=== PATIENT | female | born 1960 | race African-American/Black ===

== ENCOUNTER 2018-05-05 05:47 | Inpatient (IN) | payer OTHER ==
[2018-05-02 14:54] LABS: BASOPHILS % 0.3 % (0.0-1.0); EOSINOPHILS # (AUTO) 0.2 (0.0-0.4); EOSINOPHILS % 2.6 % (0.0-6.0); HEMATOCRIT 36.5 % (34.2-44.1); HEMOGLOBIN 11.8 g/dL (12.0-16.0); LYMPHOCYTES # (AUTO) 2.4 (1.0-3.2); LYMPHOCYTES % 34.2 % (18.0-39.1); MEAN CORPUSCULAR HEMOGLOBIN 27.4 pg (28-32); MEAN CORPUSCULAR HGB CONC 32.3 g/dL (31-35); MEAN CORPUSCULAR VOLUME 84.7 fL (81-99); MONOCYTES # (AUTO) 0.6 (0.2-0.8); MONOCYTES % 7.9 % (4.4-11.3); NEUTROPHILS # (AUTO) 3.8 (2.1-6.9); NEUTROPHILS % 54.6 % (38.7-80.0); PLATELET COUNT 294 x10e3/uL (140-360); RED BLOOD COUNT 4.31 x10e6/uL (3.6-5.1); RED CELL DISTRIBUTION WIDTH 13.5 % (11.7-14.4)
[2018-05-02 15:10] LABS: ANION GAP 14.3 mmol/L (8-16); BLOOD UREA NITROGEN 18 mg/dL (7-26); BUN/CREATININE RATIO 25 (6-25); CALCIUM 9.5 mg/dL (8.4-10.2); CARBON DIOXIDE 23 mmol/L (22-29); CHLORIDE 100 mmol/L (98-107); CREATININE, SERUM 0.71 mg/dL (0.57-1.11); EST GLOMERULAR FILTRATION RATE > 60 ML/MIN (60-); GLUCOSE 85 mg/dL (74-118); POTASSIUM 3.3 mmol/L (3.5-5.1); SODIUM 134 mmol/L (136-145)
[~2018-05-05] VITALS: Ht 157.5 cm; Wt 91.6 kg
[~2018-05-05 05:47] MED LIST: ARTIFICIAL TEAR15 ML OP; ATORVASTATIN CA80 MG PO; FERROUS GLUCONATE PO; HYDROXYZINE HCL25 MG PO; LISINOPRIL2.5 MG PO; MULTIVITAMINS1 EAC7 PO; NOVOLOG MI100 UNIT/1 SQ; SYMBICORT 80-10.2 GM INH; TAMOXIFEN CITRA20 MG PO; TRULICITY INJ; VENLAFAXINE HCL75 MG PO; VITAMIN D250000 UNIT PO
--- OUTSIDE RECORDS SUMMARY | 2018-05-05 05:51 | XMS REPORT ---
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 Allergies, Adverse Reactions, Alerts This patient has no known allergies or adverse reactions. Medications This patient has no known medications. Encounters Start Date/Time End Date/Time Encounter Type Admission Type Attending Clinicians Care Facility Care Department Encounter ID 2017-02-08 10:54:00 2017-02-08 10:54:00 Outpatient Aidan Yusuf [id number]
--- OUTSIDE RECORDS SUMMARY | 2018-05-05 05:51 | XMS REPORT | Clinical Summary ---
Author Author [facility] Address Unknown Phone Unavailable Care Team Providers Care Funeral Driver Name Role Phone Elisha Medrano MD PCP Allergies Comments Active Allergy Reactions Severity Noted Date No Known Drug Allergies Other (See 06/25/2015 Comments) Medications End Date Status Medication Sig Dispensed Refills Start Date Active ATORVASTATIN CALCIUM Take 40 mg by 0 (ATORVASTATIN ORAL) mouth nightly. Active aspirin (ECOTRIN) 81 MG Take 81 mg by 0 enteric coated tablet mouth daily. Active venlafaxine (EFFEXOR) 75 Take 75 mg by 0 MG tablet mouth daily. Active insulin aspart Inject under 0 prot/insuln asp (NOVOLOG the skin. MIX 70-30 U-100 INSULN Note: 38 U in SUBQ) the morning and 46 U in the evening Active ondansetron ODT Take 4 mg by 0 (ZOFRAN-ODT) 4 MG mouth every 8 disintegrating tablet (eight) hours as needed for nausea or vomiting. Active TRULICITY 1.5 mg/0.5 mL Inject 0.5 mL 2 pen injector under the 8 skin once a week. Active lisinopril Take 1 tablet 0 (PRINIVIL,ZESTRIL) 2.5 mg by mouth tablet daily. Active tamoxifen (NOLVADEX) 20 Take 20 mg by 0 MG chemo tablet mouth daily. 02/12/2018 Discontinued ibuprofen (ADVIL,MOTRIN) Take 200 mg 0 200 MG tablet by mouth 2 (two) times a day. As needed for pain 12/02/2017 Discontinued HUMALOG MIX 75-25 KWIKPEN TAKE 30 UNITS 0 100 unit/mL (75-25) BEFORE 7 insulin pen BREAKFAST AND 15 UNITS BEFORE DINNER. 07/17/2017 Discontinued tamoxifen (NOLVADEX) 20 Take 1 tablet 90 tablet 0 MG chemo tablet (20 mg total) 7 by mouth daily for 90 days. 10/16/2017 tamoxifen (NOLVADEX) 20 TAKE 1 90 tablet 0 MG chemo tablet TABLET(20 MG) 8 BY MOUTH DAILY 09/02/2017 Discontinued tamoxifen (NOLVADEX) 20 TAKE 1 90 tablet 0 MG chemo tablet TABLET(20 MG) 8 BY MOUTH DAILY 09/02/2017 Discontinued tamoxifen (NOLVADEX) 20 TAKE 1 90 tablet 0 MG chemo tablet TABLET(20 MG) 8 BY MOUTH DAILY 09/02/2017 Discontinued tamoxifen (NOLVADEX) 20 TAKE 1 90 tablet 0 MG chemo tablet TABLET(20 MG) 8 BY MOUTH DAILY 01/07/2018 tamoxifen (NOLVADEX) 20 Take 1 tablet 90 tablet 2 MG chemo tablet (20 mg total) 8 by mouth daily for 90 days. 02/14/2018 Discontinued ondansetron ODT (ZOFRAN Take 1 tablet 10 tablet 0 ODT) 4 MG disintegrating (4 mg total) 8 tablet by mouth every 8 (eight) hours as needed for nausea or vomiting for up to 30 days. 02/14/2018 Discontinued ibuprofen (ADVIL,MOTRIN) Take 1 tablet 20 tablet 0 600 MG tablet (600 mg 8 total) by mouth every 6 (six) hours as needed for mild pain for up to 5 days. 02/15/2018 Discontinued tamoxifen citrate Take 1 tablet 0 (TAMOXIFEN ORAL) by mouth daily. 02/17/2018 Discontinued ibuprofen (ADVIL,MOTRIN) Take 600 mg 0 600 MG tablet by mouth every 6 (six) hours as needed for mild pain. Active Problems Problem Noted Date Diastolic heart failure, NYHA class 1 02/15/2018 Biliary colic 02/15/2018 ACS (acute coronary syndrome) 02/14/2018 Epigastric pain 02/14/2018 NAFLD (nonalcoholic fatty liver disease) 02/14/2018 Hypertriglyceridemia 10/30/2017 Obesity with body mass index 30 or greater 10/23/2017 Generalized anxiety disorder 10/23/2017 Panic disorder with agoraphobia 10/23/2017 Prophylactic use of SERMs 09/04/2016 Sleep apnea 06/25/2016 Estrogen receptor positive status (ER+) 06/25/2016 Depression 06/25/2016 Family history of malignant neoplasm of breast 06/25/2016 Sarcoidosis 12/07/2015 Breast cancer 11/07/2015 Cancer Staging: Clinical: Stage IA (T1c, N0, M0) - Signed by Oumar Wooten MD on 11/07/2015 Type 2 diabetes mellitus 06/25/2015 Overview: 09/2014: A1c 12.0, + microalbuminuria. glucosuriam, Cr 0.51 Resolved Problems Problem Noted Date Resolved Date Encounter of female for testing for genetic disease carrier status for 06/25/2016 09/02/2017 procreative management Encounters Care Team Description Date Type Specialty Myra Alegria III, MD Sadoun, Elise Yasmeen, MD ACS (acute coronary syndrome) (HCC) (Primary Dx) 02/14/2018 Emergency General Internal Medicine - 02/17/2018 Judy Pandya MD Non-intractable vomiting with nausea, unspecified vomiting type (Primary Dx); Chest pain, unspecified type; Nonintractable headache, unspecified chronicity pattern, unspecified headache type 02/12/2018 Emergency Emergency Medicine Oumar Wooten MD Malignant neoplasm of upper-outer quadrant of right breast in female, estrogen receptor positive (Primary Dx) 12/02/2017 Office Visit Oncology David Lawrence MD 11/27/2017 Hospital Radiation Oncology Encounter Adam Mitchell MD Acute pain of left ear (Primary Dx); Impacted cerumen of left ear 11/05/2017 Emergency Emergency Medicine Hanna Garcia RN 10/09/2017 Orders Only Oncology Lisa Wright MD Malignant neoplasm of upper-outer quadrant of right breast in female, estrogen receptor positive (Primary Dx); Type 2 diabetes mellitus without complication, with long-term current use of insulin; Prophylactic use of SERMs; Family history of malignant neoplasm of breast; Sarcoidosis 09/02/2017 Office Visit General Surgery Oumar Wooten MD 08/20/2017 Refill Oncology Oumar Wooten MD 07/20/2017 Refill Oncology Oumar Wooten MD 07/17/2017 Refill Oncology David Lawrence MD 06/06/2017 Hospital Radiation Oncology - Encounter 06/07/2017 after 05/04/2017 Immunizations Name Dates Previously Given Next Due FLUCELVAX QUAD PF (0.5mL 02/17/2018 syringe) Pneumococcal Conjugate 02/17/2018 13-Valent Pneumococcal 02/17/2018 (Deferred: ) Polysaccharide Family History Medical History Relation Name Comments Breast cancer Brother Diabetes Brother Cancer Cousin Malignant tumor of breast Cancer Cousin Malignant tumor of breast Other Daughter History of osteosarcoma Breast cancer Maternal Aunt Cancer Maternal Aunt Malignant tumor of breast Diabetes Mother Cancer Sister History of malignant neoplasm-Breast Relation Name Status Comments Brother Cousin Cousin Daughter Maternal Aunt (Age 70) Mother Sister Alive Social History Date Tobacco Use Types Packs/Day Years Used Never Smoker Smokeless Tobacco: Never Used Alcohol Use Drinks/Week oz/Week Comments Yes Occasional Sex Assigned at Date Recorded Not on file Industry Job Start Date Occupation Not on file Not on file Not on file Travel End Travel History Travel Start No recent travel history available. Last Filed Vital Signs Time Taken Vital Sign Reading 02/17/2018 10:27 AM CDT Blood Pressure 116/56 02/17/2018 10:27 AM CDT Pulse 90 02/17/2018 10:27 AM CDT Temperature 36.9 C (98.4 F) 02/17/2018 10:27 AM CDT Respiratory Rate 18 02/17/2018 10:27 AM CDT Oxygen Saturation 97% - Inhaled Oxygen - Concentration 02/16/2018 3:36 AM CDT Weight 90.4 kg (199 lb 6.4 oz) 02/14/2018 3:55 PM CDT Height 157.5 cm (5' 2") 02/16/2018 3:36 AM CDT Body Mass Index 36.47 Plan of Treatment Care Team Description [place] [address] [facility] [address] [place] [address] 05/07/2018 [place] [address] [facility] [address] [place] [address] 05/07/2018 Hospital [place]iology [place] [address] [facility] [address] [place] [address] 06/04/2018 [place] [address] [facility] [address] [place], [place] [id number] 06/04/2018 Appointment Radiation Oncology Health Maintenance Due Date Last Done Comments DIABETIC RETINAL EYE EXAM 1962 DIABETIC FOOT EXAM 01/23/1972 CERVICAL CANCER SCREENING 1983 COLON CANCER SCREENING 01/23/2012 SHINGLES VACCINES (1 of 01/23/2012 2) BREAST CANCER SCREENING 05/03/2019 05/03/2017, 05/03/2017, 05/01/2016, Additional history exists INFLUENZA VACCINE Completed 02/17/2018 Procedures Comments Procedure Name Priority Date/Time Associated Diagnosis POC GLUCOSE Routine 02/17/2018 10:46 AM CDT NM HEPATOBILIARY W PHARM Routine 02/17/2018 10:43 AM CDT POC GLUCOSE Routine 02/16/2018 9:00 PM CDT POC GLUCOSE Routine 02/16/2018 5:24 PM CDT POC GLUCOSE Routine 02/16/2018 11:44 AM CDT POC GLUCOSE Routine 02/16/2018 7:50 AM CDT MRI CHOLANGIOGRAM WO Routine 02/15/2018 CONTRAST 9:53 PM CDT POC GLUCOSE Routine 02/15/2018 9:22 PM CDT POC GLUCOSE Routine 02/15/2018 5:24 PM CDT NM MYOCARDIAL PERFUSION Routine 02/15/2018 Precordial chest pain STRESS ONLY 1:35 PM CDT CV STRESS TEST NUCLEAR Routine 02/15/2018 CARDIO 1:35 PM CDT POC GLUCOSE Routine 02/15/2018 11:34 AM CDT US ABDOMEN COMPLETE Routine 02/15/2018 11:27 AM CDT ECHOCARDIOGRAM 2D Routine 02/15/2018 COMPLETE W MMODE SPECTRAL 10:40 AM CDT COLOR DOPPLER ([id number]) POC GLUCOSE Routine 02/15/2018 7:54 AM CDT PROTHROMBIN TIME WITH INR Routine 02/15/2018 4:50 AM CDT TROPONIN Timed 02/15/2018 4:50 AM CDT LIPID PANEL Timed 02/15/2018 12:57 AM CDT TROPONIN Timed 02/15/2018 12:57 AM CDT LACTIC ACID LEVEL, SEPSIS Timed 02/15/2018 - NOW AND REPEAT 2X EVERY 12:57 AM CDT 3 HOURS HEMOGLOBIN A1C Routine 02/15/2018 12:51 AM CDT ECG 12-LEAD Routine 02/15/2018 12:33 AM CDT ECG 12-LEAD Routine 02/14/2018 10:45 PM CDT POC GLUCOSE Routine 02/14/2018 8:54 PM CDT ECG 12-LEAD Routine 02/14/2018 8:24 PM CDT XR CHEST 2 VW STAT 02/14/2018 6:05 PM CDT ESTIMATED GFR STAT 02/14/2018 5:35 PM CDT D-DIMER STAT 02/14/2018 5:35 PM CDT B NATRIURETIC PEPTIDE STAT 02/14/2018 5:35 PM CDT TROPONIN Timed 02/14/2018 5:35 PM CDT TROPONIN STAT 02/14/2018 5:35 PM CDT CREATINE KINASE, TOTAL STAT 02/14/2018 (CPK) 5:35 PM CDT LIPASE LEVEL STAT 02/14/2018 5:35 PM CDT LACTIC ACID LEVEL, SEPSIS Timed 02/14/2018 - NOW AND REPEAT 2X EVERY 5:35 PM CDT 3 HOURS LACTIC ACID LEVEL, SEPSIS STAT 02/14/2018 - NOW AND REPEAT 2X EVERY 5:35 PM CDT 3 HOURS COMPREHENSIVE METABOLIC STAT 02/14/2018 PANEL 5:35 PM CDT HC COMPLETE BLD COUNT STAT 02/14/2018 W/AUTO DIFF 5:35 PM CDT ECG ED PRELIMINARY Routine 02/14/2018 INTERPRETATION 5:10 PM CDT URINALYSIS SCREEN AND STAT 02/14/2018 MICROSCOPY, WITH REFLEX 5:00 PM CDT TO CULTURE URINE CULTURE STAT 02/14/2018 5:00 PM CDT ECG 12-LEAD STAT 02/14/2018 4:02 PM CDT URINALYSIS SCREEN AND STAT 02/12/2018 MICROSCOPY, WITH REFLEX 8:45 PM CDT TO CULTURE URINE CULTURE STAT 02/12/2018 8:45 PM CDT XR CHEST 1 VW PORTABLE STAT 02/12/2018 7:39 PM CDT ESTIMATED GFR STAT 02/12/2018 6:45 PM CDT PHOSPHORUS LEVEL STAT 02/12/2018 6:45 PM CDT MAGNESIUM LEVEL STAT 02/12/2018 6:45 PM CDT LACTIC ACID LEVEL, SEPSIS STAT 02/12/2018 - NOW AND REPEAT 2X EVERY 6:45 PM CDT 3 HOURS BETA HYDROXYBUTYRATE STAT 02/12/2018 6:45 PM CDT TROPONIN STAT 02/12/2018 6:45 PM CDT CREATINE KINASE, TOTAL STAT 02/12/2018 (CPK) 6:45 PM CDT LIPASE LEVEL STAT 02/12/2018 6:45 PM CDT COMPREHENSIVE METABOLIC STAT 02/12/2018 PANEL 6:45 PM CDT HC COMPLETE BLD COUNT STAT 02/12/2018 W/AUTO DIFF 6:45 PM CDT ECG ED PRELIMINARY Routine 02/12/2018 INTERPRETATION 6:39 PM CDT ECG 12-LEAD STAT 02/12/2018 5:49 PM CDT after 05/04/2017 Results * POC glucose (02/17/2018 10:46 AM CDT) Only the most recent of 10 results within the time period is included. POC glucose 172 (H) 65 - 99 mg/dL [facility] DEPARTMENT OF Comment: PATHOLOGY AND RN Notified GENOMIC MEDICINE Meter ID: [id number] [employer] Spray Supervisor: Jason Arrieta Performing Organization Address City/State/[place] [address] PATHOLOGY AND GENOMIC MEDICINE * NM Hepatobiliary W Pharm (HIDA Scan w Pharm) (02/17/2018 10:43 AM CDT) Narrative Performed At [facility] Procedure:NM HEPATOBILIARY W PHARM (HIDA SCAN W PHARM) Clinical History:RUQ painno feverno elev WBCUS shows gallstones only Technique: The patient was injected with 4 mCi of [id number] intravenously, followed by dynamic imaging of the abdomen in the anterior projection for 1 hour. Because of a nation-wide shortage of CCK, the patient was given a liquid fatty meal consisting of 8 oz of Boost Plus, followed by dynamic imaging of the abdomen for 60 min; these images were used to calculate the gallbladder ejection fraction. Please note that this liquid fatty meal has been shown to be a reasonable and, in fact, more physiological alternative to CCK. Findings: There is normal uptake of tracer by the liver with normal excretion into the biliary tree. Tracer proceeds normally into the gallbladder and small bowel. Gallbladder ejection fraction=91% (normal is >30%) Impression: 1. No evidence of acute cholecystitis or common bile duct obstruction. 2. Normal gallbladder ejection fraction. [facility]-[id number] Procedure Note Interface, Radiology Results Incoming - 02/17/2018 10:47 AM CDT Procedure: NM HEPATOBILIARY W PHARM (HIDA SCAN W PHARM) Clinical History: RUQ pain no fever no elev WBC US shows gallstones only Technique: The patient was injected with 4 mCi of [id number] intravenously, followed by dynamic imaging of the abdomen in the anterior projection for 1 hour. Because of a nation-wide shortage of CCK, the patient was given a liquid fatty meal consisting of 8 oz of Boost Plus, followed by dynamic imaging of the abdomen for 60 min; these images were used to calculate the gallbladder ejection fraction. Please note that this liquid fatty meal has been shown to be a reasonable and, in fact, more physiological alternative to CCK. Findings: There is normal uptake of tracer by the liver with normal excretion into the biliary tree. Tracer proceeds normally into the gallbladder and small bowel. Gallbladder ejection fraction=91% (normal is >30%) Impression: 1. No evidence of acute cholecystitis or common bile duct obstruction. 2. Normal gallbladder ejection fraction. [facility]-[id number] Performing Organization Address City/State/Zipcode Phone Number [facility] [address] [place] [address] * MRI Cholangiogram wo contrast (02/15/2018 9:53 PM CDT) Narrative Performed At [facility] Examination:MRI CHOLANGIOGRAM WO CONTRAST Clinical History: RUQ paincholecystitis suspected Comparison: None. Findings: MRI of the abdomen was performed without gadolinium contrast. MRCP was performed with computer reformatted images and 3-D MIPS images obtained on the acquisition scanner under supervision. There are no gallstones in the gallbladder. No gallbladder wall thickening is seen. The common bile duct is not dilated. It measures up to 5 mm. No filling defect is seen in the common bile duct to suggest a stone. The liver, spleen, pancreas, and adrenal glands are unremarkable. The kidneys are within normal limits without hydronephrosis. Visualized bowel loops are unremarkable. There is a right breast cystic structure noted measuring 3.0 x 2.6 cm not well-characterized on this study especially without intravenous contrast. Correlation with ultrasound and mammogram is recommended on a nonemergent basis. No free fluid is seen. IMPRESSION: 1. No evidence of gallstone. No gallbladder wall thickening. 2. No common bile duct dilatation nor common bile duct stone identified. [facility]-[id number] Procedure Note Hm Interface, Radiology Results Incoming - 02/15/2018 10:12 PM CDT Examination: MRI CHOLANGIOGRAM WO CONTRAST Clinical History: RUQ pain cholecystitis suspected Comparison: None. Findings: MRI of the abdomen was performed without gadolinium contrast. MRCP was performed with computer reformatted images and 3-D MIPS images obtained on the acquisition scanner under supervision. There are no gallstones in the gallbladder. No gallbladder wall thickening is seen. The common bile duct is not dilated. It measures up to 5 mm. No filling defect is seen in the common bile duct to suggest a stone. The liver, spleen, pancreas, and adrenal glands are unremarkable. The kidneys are within normal limits without hydronephrosis. Visualized bowel loops are unremarkable. There is a right breast cystic structure noted measuring 3.0 x 2.6 cm not well- characterized on this study especially without intravenous contrast. Correlation with ultrasound and mammogram is recommended on a nonemergent basis. No free fluid is seen. IMPRESSION: 1. No evidence of gallstone. No gallbladder wall thickening. 2. No common bile duct dilatation nor common bile duct stone identified. [facility]-[id number] Performing Organization Address [facility] HospitalSecuresight Technologiesok Phone Number [facility] [address] [place] [address] * Cv ecg exercise stress (nuclear or echo) (02/15/2018 1:35 PM CDT) Resting HR 80 [facility] MUSE Peak MET Achieved 1.0 [facility] MUSE Protocol Name Regadenoson [facility] MUSE Time in Exercise Phase 00:01:00 H MUSE Max Systolic BP 157 [facility] MUSE Max Diastolic BP 64 [facility] MUSE Max Heart Rate 112 [facility] Max Predicted Heart Rate 164 [facility] MUSE Target HR Formula (220 - Age)*85% [facility] MUSE Test Indication CP [facility] MUSE Stress Test Impression Waveform interpreted in report [facility] MUSE associated with image study. No interpretation is provided as part of this Stress ECG report.--Electronically Signed By Jennifer Knowles MD ([id number]), society editor Sana Zelaya ([id number]) on 02/15/2018 3:03:23 PM Target HR 164.00 bpm [facility] MUSE Performing Organization Address City/[facility]/Zipcode Phone Number [facility] MUSE [address] [place] [address] * Myocardial perfusion (02/15/2018 1:35 PM CDT) Target HR 164.00 bpm [facility] Resting HR 80 BPM [facility] Resting BP 116/58 mmHg [facility] Post peak HR 112 bpm [facility] Percent HR 68.29 % [facility] Post peak BP 157/64 mmHg [facility] Exercise duration (min) 1 min [facility] Narrative Performed At [facility] 1. Normal myocardial perfusion study without any ischemia or scar. 2. Normal hemodynamic and electrocardiographic regadenoson stress test. 3. Gated perfusion imaging shows normal global left ventricular systolic functionwith an ejection fraction of >70%. Performing Organization Address [facility] Hospitalcook Phone Number [facility] [address] [place] [address] * US Abdomen Complete (02/15/2018 11:27 AM CDT) Narrative Performed At EXAM: US ABDOMEN COMPLETE [facility] CLINICAL DATA:Nauseavomiting, epigastric paindiabetes COMPARISON: 08/17/2016 IMPRESSION: 1. Liver: Heterogeneous echogenicity of the liver which can be seen with fatty infiltration or liver parenchymal disease. No focal masses. 2. Gallbladder: 1.5 cm ovoid and slightly irregular echogenic material within the gallbladder likely represents sludge. No shadowing. Short-term follow-up ultrasound recommended for reassessment. The gallbladder wall is not thickened. 3. CBD: The common bile duct is within normal limits. 4. Portal Vein: Patent 5. Pancreas: The visualized portion of the pancreas is unremarkable. 6. Spleen: The spleen is not enlarged. 7. Kidneys: No suspicious mass, hydronephrosis or renal calculi in the right or left kidneys. 8. Aorta: The visualized portion of the abdominal aorta is non aneurysmal. 9. IVC: The visualized portion of the inferior vena cava is unremarkable. 10. Ascites: No ascites. 11. Other findings: None [id number] Procedure Note Interface, Radiology Results Incoming - 02/15/2018 11:37 AM CDT EXAM: US ABDOMEN COMPLETE CLINICAL DATA: Nausea vomiting, epigastric pain diabetes COMPARISON: 08/17/2016 IMPRESSION: 1. Liver: Heterogeneous echogenicity of the liver which can be seen with fatty infiltration or liver parenchymal disease. No focal masses. 2. Gallbladder: 1.5 cm ovoid and slightly irregular echogenic material within the gallbladder likely represents sludge. No shadowing. Short-term follow-up ultrasound recommended for reassessment. The gallbladder wall is not thickened. 3. CBD: The common bile duct is within normal limits. 4. Portal Vein: Patent 5. Pancreas: The visualized portion of the pancreas is unremarkable. 6. Spleen: The spleen is not enlarged. 7. Kidneys: No suspicious mass, hydronephrosis or renal calculi in the right or left kidneys. 8. Aorta: The visualized portion of the abdominal aorta is non aneurysmal. 9. IVC: The visualized portion of the inferior vena cava is unremarkable. 10. Ascites: No ascites. 11. Other findings: None [id number] Performing Organization Address City/State/Zipcode Phone Number [facility] [address] [place] [address] * Echocardiogram complete w contrast and 3D if needed (02/15/2018 10:40 AM CDT) AoV Area, Vmax 3.40 cm2 [facility] AoV Area, VTI 3.16 cm2 [facility] AoV Mean PG 2.00 mmHg [facility] AoV Peak PG 4.08 mmHg [facility] AoV Vmax 1.01 m/s [facility] AoV VTI 0.22 m [facility] IVS,d 1.13 cm [facility] IVS/LVPW,2D 0.98 [facility] Left Atrium Dimension 3.40 cm [facility] Anterior LV,d 3.95 cm [facility] LV EF,2D 62.44 % [facility] LV,s 2.85 cm [facility] LVOT area 3.46 cm2 [facility] LVOT Diam,S 2.10 cm [facility] LVOT Vmax 0.99 m/s [facility] LVOT VTI 0.20 m [facility] LVPWD,d 1.15 cm [facility] PV Pk Grad 2.53 mmHg [facility] PV VMAX 0.80 m/s [facility] RVOT Vmax 0.72 m/s [facility] RVSP (TR) 21.70 mmHg [facility] TR Vpeak 1.71 mm/s [facility] MV E A ratio 0.76 [facility] RA pressure 10.00 mmHg [facility] TR pk grad 11.70 mmHg [facility] MR Vmax 1.16 m/s [facility] MR peak grad 5.38 mmHg [facility] E wave decelartion time 201.00 msec [facility] MV Peak A Tyler 0.79 m/s [facility] MV valve area p 1/2 3.77 cm2 [facility] method MV Peak E Ytler 0.60 m/s [facility] MV stenosis pressure 1/2 58.29 ms [facility] time AV LVOT peak gradient 3.92 mmHg [facility] RVSP 21.70 mmHg [facility] Ao Root,d,2D 2.60 cm [facility] LV SYS VOL 30.87 ml [facility] LV IBRAHIM VOL 67.94 ml [facility] LV SV Teich 2D 37.07 ml [facility] LV Vol s Teich PSAX 30.87 ml [facility] RVOT pk grad 2.06 mmHg [facility] AoV Cusp sep 2.10 [facility] Aortic Root 3.20 cm [facility] AoV Vmn 0.74 [facility] LV FS Teich 2D 27.85 [facility] MV AE ratio 1.32 [facility] LA Ao Ratio Mmode 1.16 [facility] LV FS Cube 2D 27.85 [facility] LVOT Vmn 0.65 [facility] LVPW d Mmode 1.13 [facility] Aov area Vmn 3.07 cm2 [facility] LVOT mean grad 2.00 mmHg [facility] MAX Pred HR 163.93 [facility] 85 of MPHR 139.34 [facility] Ao d LA s ratio 0.76 [facility] Calc MPHR 163.93 bpm [facility] LV SV Cube 2D 38.48 ml [facility] LV vol d cube 2D 61.63 ml [facility] LV vol s cube 2D 23.15 ml [facility] MV Decel slope 2.97 m/s2 [facility] Pred Exer Dur R1 8.33 [facility] Pred METS R1 7.41 [facility] Velocity Ratio (V1/V2) 0.98 m/s [facility] EF 54.56 % [facility] E/A ratio 0.76 [facility] Narrative Performed At [facility] Left ventricle is normal in size and systolic function. Left ventricular ejection fraction is 60 - 65%. Relaxation impairment of left ventricular filling, consistent with stage 1 diastolic dysfunction. Both atria are normal in size. Right ventricle is normal in size and systolic function. Mitral, tricuspid and aortic valve appear normal in structure; pulmonic valve is not well visualized. Estimated right ventricular systolic pressure is normal at 22 mm Hg., assuming right atrial pressure of 10 mm Hg. No mass or thrombus identified in the cardiac chambers in the available views. No pericardial effusion. Interatrial septum appears intact. Performing Organization Address City/State/Zipcode Phone Number [facility] [address] [place] [address] * Troponin (02/15/2018 4:50 AM CDT) Only the most recent of 5 results within the time period is included. Troponin <0.30 0.00 - 0.30 ng/mL [facility] DEPARTMENT OF Comment: PATHOLOGY AND 0.11 - 1.49 GENOMIC MEDICINE ng/mlMay indicate increased risk of acute coronary syndrome. >=1.5 ng/ml Consistent with acute myocardial infarction. The diagnostic value of a single normal or non-diagnostic result is questionable.Serial samples at 2-6 hour intervals are required to rule out acute myocardial injury. Specimen Plasma specimen Performing Organization Address [facility] Phone Number [address] [address] PATHOLOGY AND ideeli MEDICINE * Prothrombin time with INR (02/15/2018 4:50 AM CDT) Prothrombin time 14.3 12.0 - 15.0 sec [facility] DEPARTMENT OF PATHOLOGY AND GENOMIC MEDICINE INR 1.1 [facility] DEPARTMENT OF Comment: PATHOLOGY AND The International Normalized GENOMIC MEDICINE Ratio (INR) is a therapeutic monitoring tool for patients who are stable on oral anticoagulant therapy. An INR of 2.0-3.0 is suggested for deep vein thrombosis/pulmonary embolism. Specimen Blood Performing Organization Address [facility] Hospital[facility] Phone Number [facility] [id number] [place] [phone] PATHOLOGY AND ideeli MEDICINE * Lactic acid level, SEPSIS - Now and repeat 2x every 3 hours (02/15/2018 12:57 AM CDT) Only the most recent of 4 results within the time period is included. Lactic acid 1.7 0.5 - 2.2 mmol/L [facility] DEPARTMENT OF PATHOLOGY AND GENOMIC MEDICINE Specimen Plasma specimen Performing Organization Address [facility] Hospitalcode Phone Number [address] [address] PATHOLOGY AND GENOMIC MEDICINE * Lipid panel (02/15/2018 12:57 AM CDT) Cholesterol 145 0 - 199 mg/dL [facility] DEPARTMENT OF PATHOLOGY AND GENOMIC MEDICINE Triglycerides 200 (H) 0 - 149 mg/dL [facility] DEPARTMENT OF PATHOLOGY AND GENOMIC MEDICINE HDL cholesterol 41 40 - 99,999 mg/dL [facility] DEPARTMENT OF PATHOLOGY AND GENOMIC MEDICINE LDL cholesterol 79 0 - 99 mg/dL [facility] DEPARTMENT OF PATHOLOGY AND GENOMIC MEDICINE Lipid panel See below [facility] DEPARTMENT OF interpretation Comment: PATHOLOGY AND Total Cholesterol GENOMIC MEDICINE (mg/dL) <200 Desirable 200-239Borderline -high >=240High Triglycerides (mg/dL) <150 Normal 150-199Borderline -high 200-499High >=500Very high HDL Cholesterol (mg/dL) <40Low (male) <50Low (female) LDL Cholesterol (mg/dL) <100 Optimal 100-129Near or above optimal 130-159Borderline -high 160-189High >=190Very high Risk Catergories that modify LDL goals. Risk Catergories LDL goal (mg/dL) CHD and CHD risk equivalent<100 (10-year risk >20%) Multiple (2+) risk factors <130 (10-year risk=<20%) 0-1 risk factors <160 (<10-year risk) Defining levels of lipids in metabolic syndrome Triglycerides >=150 mg/dL HDL Cholesterol Men <40 mg/dL Women <50 mg/dL Non-HDL cholesterol is a second target for therapy in persons with high triglycerides (>=200 mg/dL) Specimen Plasma specimen Performing Organization Address City/State/Zipcode Phone Number [facility] [id number] [place] [address] PATHOLOGY AND ideeli MEDICINE * Hemoglobin A1c (02/15/2018 12:51 AM CDT) Hemoglobin A1C 8.2 (H) 4.0 - 6.0 % [facility] DEPARTMENT OF Comment: PATHOLOGY AND GENOMIC MEDICINE Less than 6% - Goal of therapy for Type II Diabetes Less than 7%-Goal of therapy for Type I Diabetes Less than 8%-Accepta ble control for Type I or Type II Diabetes Greater than 8%-Unacceptabl e control; action indicated. (ADA94) Specimen Blood Performing Organization Address City/State/Zipcode Phone Number [place] [phone] [place] [address] PATHOLOGY AND GENOMIC MEDICINE * ECG 12 lead (02/15/2018 12:33 AM CDT) Only the most recent of 5 results within the time period is included. Ventricular rate 82 [facility] Atrial rate 82 [facility] MA interval 178 [facility] QRSD interval 72 [facility] QT interval 380 [facility] QTC interval 443 [facility] P axis 1 59 [facility] QRS axis 1 18 [facility] T wave axis -9 [facility] EKG impression Normal sinus [facility] MUSE rhythm-Nonspecific T wave abnormality-Abnormal ECG-- Performing Organization Address [facility] Hospitalcook Phone Number [facility] MUSE [address] [place] [address] * XR Chest 2 Vw (02/14/2018 6:05 PM CDT) Narrative Performed At EXAMINATION:XR CHEST 2 VW [facility] CLINICAL HISTORY:chest pain XR CHEST 2 VWimages are submitted COMPARISON:Chest x-rays dated February 12, 2018 IMPRESSION: Heart and mediastinum:Mild interval worsening of cardiomegaly. Tortuous thoracic aorta. Lungs: Low lung volume. There is no evidence of pneumonia or pulmonary edema. Pleura:There is no pleural effusion or pneumothorax. Bones:unremarkable. [id number] Procedure Note Hm Interface, Radiology Results Incoming - 02/14/2018 6:10 PM CDT EXAMINATION: XR CHEST 2 VW CLINICAL HISTORY: chest pain XR CHEST 2 VW images are submitted COMPARISON: Chest x-rays dated February 12, 2018 IMPRESSION: Heart and mediastinum: Mild interval worsening of cardiomegaly. Tortuous thoracic aorta. Lungs: Low lung volume. There is no evidence of pneumonia or pulmonary edema. Pleura: There is no pleural effusion or pneumothorax. Bones: unremarkable. [id number] Performing Organization Address [facility] Hospitalcode Phone Number [facility] [address] [place] [address] * Estimated GFR (02/14/2018 5:35 PM CDT) Only the most recent of 2 results within the time period is included. Estimated GFR >=90 mL/min/1.73 m2 [facility] DEPARTMENT OF Comment: PATHOLOGY AND CatergoryUnitsInte GENOMIC MEDICINE rpretation G1 >=90 Normal or high G2 60-89Mildly decreased [id number] Mildly to moderately decreased [id number] Moderately to severely decreased G4 15-29Severely decreased G5 <15Kidney failure The eGFR was calculated using the Chronic Kidney Disease Epidemiology Collaboration (CKD-EPI) equation. Interpretation is based on recommendations of the National Kidney Foundation-Kidney Disease Outcomes Quality Initiative (NKF-KDOQI) published in 2014. Specimen Plasma specimen Performing Organization Address [facility] Phone Number [place] [phone] [place] [address] PATHOLOGY AND ideeli [facility] * D-dimer (02/14/2018 5:35 PM CDT) D-dimer 0.33 0.00 - 0.40 ug/mL [facility] DEPARTMENT OF Comment: PATHOLOGY AND Units are ug/ml Fibrinogen ideeli [facility] Equivalent Unit. When combined with low clinical probability, D-dimer results of less than 0.5 ug/ml FEU have a good negativepredictive value in excluding PE or DVT. For D-dimer results greater than 0.5ug/ml FEU further testing is indicated if PE or DVT is suspectedclinically. Elevated D-dimer results have been reported in DVT, PE, and DIC cases and may indicate the presence of a clot. D-dimer results may be elevated due to old age, , inflammatory diseases, trauma, post-operative states, sepsis, and malignancies. Specimen Blood Performing Organization Address City/[facility] Phone Number [facility] [place] [address] [place] [address] PATHOLOGY AND ideeli MEDICINE * CBC with platelet and differential (02/14/2018 5:35 PM CDT) Only the most recent of 2 results within the time period is included. WBC 5.4 4.5 - 11.0 k/uL [facility] DEPARTMENT OF PATHOLOGY AND GENOMIC MEDICINE RBC 4.28 4.20 - 5.50 m/uL [facility] DEPARTMENT OF PATHOLOGY AND GENOMIC MEDICINE HGB 11.9 (L) 12.0 - 16.0 g/dL [facility] DEPARTMENT OF PATHOLOGY AND GENOMIC MEDICINE HCT 36.9 (L) 37.0 - 47.0 % [facility] DEPARTMENT OF PATHOLOGY AND GENOMIC MEDICINE MCV 86.2 82.0 - 100.0 fL [facility] DEPARTMENT OF PATHOLOGY AND GENOMIC MEDICINE MCH 27.8 27.0 - 34.0 pg [facility] DEPARTMENT OF PATHOLOGY AND GENOMIC MEDICINE MCHC 32.2 31.0 - 37.0 g/dL [facility] DEPARTMENT OF PATHOLOGY AND GENOMIC MEDICINE RDW - SD 43.5 37.0 - 55.0 fL [facility] DEPARTMENT OF PATHOLOGY AND GENOMIC MEDICINE MPV 10.7 6.9 - 11.0 fL [facility] DEPARTMENT OF PATHOLOGY AND GENOMIC MEDICINE Platelet count 243 150 - 400 K/uL [facility] DEPARTMENT OF PATHOLOGY AND GENOMIC MEDICINE Nucleated RBC 0.00 /100 WBC [facility] DEPARTMENT OF PATHOLOGY AND GENOMIC MEDICINE Neutrophils 42.4 39.0 - 69.0 % [facility] DEPARTMENT OF PATHOLOGY AND GENOMIC MEDICINE Lymphocytes 43.4 25.0 - 45.0 % [facility] DEPARTMENT OF PATHOLOGY AND GENOMIC MEDICINE Monocytes 10.7 (H) 0.0 - 10.0 % [facility] DEPARTMENT OF PATHOLOGY AND GENOMIC MEDICINE Eosinophils 2.6 0.0 - 5.0 % [facility] DEPARTMENT OF PATHOLOGY AND GENOMIC MEDICINE Basophils 0.7 0.0 - 1.0 % [facility] DEPARTMENT OF PATHOLOGY AND GENOMIC MEDICINE Immature granulocytes 0.2 0.0 - 1.0 % [facility] DEPARTMENT OF PATHOLOGY AND GENOMIC MEDICINE Specimen Blood Performing Organization Address City/[facility] [place] [address] PATHOLOGY [facility] * B natriuretic peptide (02/14/2018 5:35 PM CDT) BNP 8 0 - 100 pg/mL [facility] DEPARTMENT OF PATHOLOGY AND GENOMIC MEDICINE Specimen Blood Performing Organization Address City/[facility]code Phone Number [address] * Lipase level (02/14/2018 5:35 PM CDT) Only the most recent of 2 results within the time period is included. Lipase 26 13 - 60 U/L [facility] DEPARTMENT OF PATHOLOGY AND GENOMIC MEDICINE Specimen Plasma specimen Performing Organization Address City/[facility] Phone Number [address] [address] PATHOLOGY AND GENOMIC MEDICINE * Creatine kinase, total (CPK) (02/14/2018 5:35 PM CDT) Only the most recent of 2 results within the time period is included. Creatine kinase 226 (H) 26 - 192 U/L [facility] DEPARTMENT OF PATHOLOGY AND GENOMIC MEDICINE Specimen Plasma specimen Performing Organization Address City/[facility] [place] [address] PATHOLOGY AND GENOMIC MEDICINE * Comprehensive metabolic panel (02/14/2018 5:35 PM CDT) Only the most recent of 2 results within the time period is included. Sodium 138 135 - 148 mEq/L [facility] DEPARTMENT OF PATHOLOGY AND GENOMIC MEDICINE Potassium 5.2 (H) 3.5 - 5.0 mEq/L [facility] DEPARTMENT OF PATHOLOGY AND GENOMIC MEDICINE Chloride 104 98 - 112 mEq/L [facility] DEPARTMENT OF PATHOLOGY AND GENOMIC MEDICINE CO2 23 (L) 24 - 31 mEq/L [facility] DEPARTMENT OF PATHOLOGY AND GENOMIC MEDICINE Anion gap 11@ANIO 7 - 15 mEq/L [facility] DEPARTMENT OF PATHOLOGY AND GENOMIC MEDICINE BUN 11 6 - 20 mg/dL [facility] DEPARTMENT OF PATHOLOGY AND GENOMIC MEDICINE Creatinine 0.54 0.50 - 0.90 mg/dL [facility] DEPARTMENT OF PATHOLOGY AND GENOMIC MEDICINE Glucose 117 (H) 65 - 99 mg/dL [facility] DEPARTMENT OF PATHOLOGY AND GENOMIC MEDICINE Calcium 9.1 8.3 - 10.2 mg/dL [facility] DEPARTMENT OF PATHOLOGY AND GENOMIC MEDICINE Protein 7.5 6.3 - 8.3 g/dL [facility] DEPARTMENT OF PATHOLOGY AND GENOMIC MEDICINE Albumin 4.1 3.5 - 5.0 g/dL [facility] DEPARTMENT OF PATHOLOGY AND GENOMIC MEDICINE A/G ratio 1.2 0.7 - 3.8 [facility] DEPARTMENT OF PATHOLOGY AND GENOMIC MEDICINE Alkaline phosphatase 58 35 - 104 U/L [facility] DEPARTMENT OF PATHOLOGY AND GENOMIC MEDICINE AST 70 (H) 10 - 35 U/L [facility] DEPARTMENT OF PATHOLOGY AND GENOMIC MEDICINE ALT 33 5 - 50 U/L [facility] DEPARTMENT OF PATHOLOGY AND GENOMIC MEDICINE Total bilirubin 0.7 0.2 - 1.2 mg/dL [facility] DEPARTMENT OF PATHOLOGY AND GENOMIC MEDICINE Specimen Plasma specimen Performing Organization Address [facility] [place] [address] PATHOLOGY AND GENOMIC MEDICINE * ECG ED Preliminary Interpretation - NOT AN ORDER (02/14/2018 5:10 PM CDT) Only the most recent of 2 results within the time period is included. Narrative Performed At Myra Alegria III, MD 02/15/20189:13 AM ECG ED Preliminary Interpretation - Not an Order Performed by: MYRA ALEGRIA III Authorized by: MYRA ALEGRIA III ECG reviewed by ED Physician in the absence of a website optimization strategist: yes Interpretation: Interpretation: normal Rate: ECG rate:80 ECG rate assessment: normal Rhythm: Rhythm: sinus rhythm Ectopy: Ectopy: none QRS: QRS axis:Normal QRS intervals:Normal Conduction: Conduction: normal ST segments: ST segments:Normal T waves: T waves: normal * Urinalysis screen and microscopy, with reflex to culture (02/14/2018 5:00 PM CDT) Only the most recent of 2 results within the time period is included. Specimen site Clean catch [facility] DEPARTMENT OF PATHOLOGY AND GENOMIC MEDICINE Color, UA Yellow [facility] DEPARTMENT OF PATHOLOGY AND GENOMIC MEDICINE Appearance, UA Clear [facility] DEPARTMENT OF PATHOLOGY AND GENOMIC MEDICINE Specific gravity, UA 1.028 1.001 - 1.030 [facility] DEPARTMENT OF PATHOLOGY AND GENOMIC MEDICINE pH, UA 5.0 5.0 - 9.0 [facility] DEPARTMENT OF PATHOLOGY AND GENOMIC MEDICINE Protein, UA 1+ (A) Negative [facility] DEPARTMENT OF PATHOLOGY AND GENOMIC MEDICINE Glucose, UA Negative Negative [facility] DEPARTMENT OF PATHOLOGY AND GENOMIC MEDICINE Ketones, UA Negative Negative [facility] DEPARTMENT OF PATHOLOGY AND GENOMIC MEDICINE Bilirubin, UA Negative Negative [facility] DEPARTMENT OF PATHOLOGY AND GENOMIC MEDICINE Blood, UA Negative Negative [facility] DEPARTMENT OF PATHOLOGY AND GENOMIC MEDICINE Nitrite, UA Negative Negative [facility] DEPARTMENT OF PATHOLOGY AND GENOMIC MEDICINE Urobilinogen, UA <2.0 <2.0 E.U./dL [facility] DEPARTMENT OF PATHOLOGY AND GENOMIC MEDICINE Leukocyte esterase, UA Negative Negative [facility] DEPARTMENT OF PATHOLOGY AND GENOMIC MEDICINE Epithelial cells, UA 3 /HPF [facility] DEPARTMENT OF PATHOLOGY AND GENOMIC MEDICINE Round epithelial cells, <1 0 - 5 /HPF [facility] DEPARTMENT OF UA PATHOLOGY AND GENOMIC MEDICINE WBC, UA 1 0 - 4 /HPF [facility] DEPARTMENT OF PATHOLOGY AND GENOMIC MEDICINE RBC, UA 1 0 - 5 /HPF [facility] DEPARTMENT OF PATHOLOGY AND GENOMIC MEDICINE Bacteria, UA Few None seen [facility] DEPARTMENT OF PATHOLOGY AND GENOMIC MEDICINE Yeast, UA None seen [facility] DEPARTMENT OF PATHOLOGY AND GENOMIC MEDICINE Yeast with pseudohyphae, None seen [facility] DEPARTMENT OF UA PATHOLOGY AND GENOMIC MEDICINE Specimen Urine Performing Organization Address City/[facility] Phone Number [facility] [place] [address] PATHOLOGY AND GENOMIC MEDICINE * Urine culture (02/14/2018 5:00 PM CDT) Only the most recent of 2 results within the time period is included. Urine culture SEE COMMENTComment: [facility] DEPARTMENT OF Bacteriuria screen negative. PATHOLOGY AND GENOMIC MEDICINE Performing Organization Address City/[facility] Phone Number [facility] [place] [address] PATHOLOGY AND GENOMIC MEDICINE * XR Chest 1 Vw Portable (02/12/2018 7:39 PM CDT) Narrative Performed At Study:XR CHEST 1 VW PORTABLE [facility] History: chest paincough past few daysno hypoxia COMPARISON: September 21, 2016 IMPRESSION: A single view of the chest.There is no focal consolidation, pleural effusion or pneumothorax.Cardiac silhouette is normal.Visualized osseous structures arewithout acute abnormality. [facility]-[id number] Procedure Note Hm Interface, Radiology Results Incoming - 02/12/2018 7:49 PM CDT Study:XR CHEST 1 VW PORTABLE History: chest pain cough past few days no hypoxia COMPARISON: September 21, 2016 IMPRESSION: A single view of the chest. There is no focal consolidation, pleural effusion or pneumothorax. Cardiac silhouette is normal. Visualized osseous structures are without acute abnormality. [facility]-[id number] Performing Organization Address [facility] Phone Number [facility] [address] [place] [address] * Beta hydroxybutyrate (02/12/2018 6:45 PM CDT) Beta hydroxybutyrate 0.32 (H) 0.02 - 0.27 mmol/L [facility] DEPARTMENT OF PATHOLOGY AND GENOMIC MEDICINE Specimen Blood Performing Organization Address City/[facility]/Zipcode Phone Number [facility] DEPARTMENT [address] [place] [address] PATHOLOGY AND GENOMIC MEDICINE * Phosphorus level (02/12/2018 6:45 PM CDT) Phosphorus 4.5 2.4 - 4.5 mg/dL [facility] DEPARTMENT OF PATHOLOGY AND GENOMIC MEDICINE Specimen Plasma specimen Performing Organization Address City/[facility] Phone Number [facility] [place] [address] [place] [address] PATHOLOGY AND GENOMIC MEDICINE * Magnesium level (02/12/2018 6:45 PM CDT) Magnesium 2.0 1.6 - 2.6 mg/dL [facility] DEPARTMENT OF PATHOLOGY AND GENOMIC MEDICINE Specimen Plasma specimen Performing Organization Address City/State/Zipcode Phone Number [facility] [address] [place] [address] PATHOLOGY AND GENOMIC MEDICINE after 05/04/2017 Insurance Payer Benefit Subscriber ID Type Phone Address Plan / Group xxxxxxxxx [facility] Advance Directives Patient has advance care planning documents, and code status on file. For more i nformation, please contact: Andrade Valdivia [address] [place] [address] Date Inactivated Comments Code Status Date Activated 02/17/2018 6:18 PM Full Code 02/15/2018 2:18 AM Code Status decision reached by: Patient
[2018-05-05] MEDS ORDERED: CEFAZOLIN SOD 2 GM/D5W 50ML 50 ML IV ONE (05:58)
[2018-05-05] MEDS ORDERED: BUPIVACAINE 0.25% 30ML SDV INJ ONE (06:32)
[2018-05-05] MEDS ORDERED: ONDANSETRON HCL INJ 2 MG/ML VIAL ONE ×2 (10:56→14:06)
--- NOTE | 2018-05-05 11:26 | Operative Report ---
DATE OF PROCEDURE: May 05, 2018 PREOPERATIVE DIAGNOSES 1. Morbid obesity, body mass index 37. 2. Type 2 diabetes mellitus. 3. Obstructive sleep apnea on continuous positive airway pressure. POSTOPERATIVE DIAGNOSES 1. Morbid obesity, body mass index 37. 2. Type 2 diabetes mellitus. 3. Obstructive sleep apnea on continuous positive airway pressure. PREOP INDICATIONS: Treat disease, prevent complications related to comorbid conditions of obesity. PROCEDURE: Laparoscopic Balwinder-en-Y gastric bypass (150 cm antecolic-antegastric balwinder limb). ANESTHESIA: General. MASS SPECTROSCOPIST: ALEX Spicer (Telephone Operator needed due to complexity of case). FLUIDS: 800 mL of crystalloid. ESTIMATED BLOOD LOSS: 30 mL. DRAINS: None. COMPLICATIONS: None. SPECIMENS: Partial stomach. GRAFTS: None. FINDINGS 1. Normal upper GI anatomy. 2. Negative intraoperative EGD leak test. PROCEDURAL DETAILS: The patient was brought to the operating room and was intubated under general endotracheal anesthesia. She was positioned supine with both arms abducted and all pressure points appropriately padded. She was sterilely prepped and draped in the usual fashion. A preprocedural pause was performed, identifying the patient and the use of perioperative antibiotics, the intended procedure and the staff surgeon. A primary 5-mm left subcostal incision was made, and a Veress needle was inserted to insufflate the abdomen to a pressure of 15 mmHg pressure. Four additional trocars were placed under direct visualization. A liver retractor was placed to expose the stomach. The gastrohepatic ligament was divided with the Harmonic scalpel. I then ligated the descending branches of the left gastric vessels up to the lesser curvature of the stomach using the [place] LigaSure device. Of note, there was some lymphadenopathy and thickening in this region, likely due to a recent or a chronic pancreatitis. I then formulated our pouch by first firing a 60-mm Endo-APRIL purple load CovManflu stapling device in a 90-degree fashion at the lesser curvature of the stomach just distal to the takeoff and pedicle of the left gastric vessels. I then continued firing multiple firings until the stomach pouch was sized about 20 mL in volume. There was a portion of stomach which was excised and removed. The proximal staple line was oversewn with 2-0 Surgidac suture. I then turned my attention to the small intestine. I measured the biliopancreatic limb 50 cm distal to the ligament of Treitz and divided the bowel with the bernabe load stapling device. The mesentery was ligated with the Harmonic scalpel. I then measured 150 cm of Balwinder limb and performed an end-to-side stapled anastomosis between the BP limb and the Balwinder limb, measured at 150 cm. The common enterotomy was stapled with the bernabe load stapling device as well. Antiobstruction stitches were placed on either side of the anastomosis to prevent torsion. I then oversewed the mesenteric defect with 2-0 Surgidac suture in a continuous fashion. The anastomosis appeared patent, without undue tension, and with a good blood supply. I then split the omentum in order to bring up our Balwinder limb and a posterior layer 2-0 Surgidac suture was done from the Balwinder limb to the posterior surface of the gastric pouch. I then made enterotomies in the stomach pouch and the Balwinder limb with the Harmonic scalpel and performed a linear anastomosis with a purple load UXCam stapling device at about 2.5 cm. The common enterotomy site was oversewn with 2-0 Polysorb sutures beginning on either end of the anastomosis and tying this in the middle over adult size endoscope which was inserted through the anastomosis in order to prevent undue narrowing. I then oversewed the suture line with 2-0 Surgidac suture in an imbricating fashion. A leak test was conducted by submerging the anastomosis under saline. No leaks were identified. I then desufflated the bowel and removed the endoscope. I placed an omental patch over the anastomosis with 2-0 Surgidac suture and then closed the Ventura's defect with 2-0 Surgidac suture in a continuous fashion. The liver retractor was removed. The large port site was closed with 0 Vicryl suture and the abdomen was then desufflated. The trocars are removed. We closed the incision site with 4-0 Monocryl suture in subcuticular fashion. Dermabond dressings were applied. A total of 30 mL of 0.25% bupivacaine was used at both the preperitoneal and incision sites. Patient tolerated the procedure well. The wound is type 2, clean, contaminated. Job#: [id number] TA
--- OUTSIDE RECORDS SUMMARY | 2018-05-05 11:48 | XMS REPORT | Clinical Summary ---
Author Author [facility] Organization [place] [facility] Address Unknown Phone Unavailable Care Team Providers Care Various Exceptionalities Teacher Name Role Phone Elisha Medrano MD PCP [...] Description [place] [address] [facility] [address] [place] [address] 05/07/2018 Appoint[place] [address] [facility] [address] [place] [address] 05/07/2018 Hospital Radiology [place] [address] [facility] [address] [place] [address] 06/04/2018 [place] [address] [facility] [address] [place], [place] [id number] 06/04/2018 Appointment Radiation Oncology Health Maintenance Due [...] MMODE SPECTRAL 10:40 AM CDT COLOR DOPPLER ([id number]) POC GLUCOSE Routine 02/15/2018 7:54 AM CDT [...] glucose 172 (H) 65 - 99 mg/dL [facility] DEPARTMENT OF Comment: PATHOLOGY AND RN Notified GENOMIC MEDICINE Meter ID: [id number] Box Chipper: Jason Arrieta Performing Organization Address City/State/[place] [address] PATHOLOGY AND GENOMIC MEDICINE * NM Hepatobiliary W Pharm (HIDA Scan w Pharm) (02/17/2018 10:43 AM CDT) Narrative Performed At [facility] Procedure:NM HEPATOBILIARY W PHARM (HIDA SCAN W PHARM) Clinical History:RUQ painno feverno elev WBCUS shows gallstones only Technique: The patient was injected with 4 mCi of [id number] intravenously, followed by dynamic imaging of the [...] duct obstruction. 2. Normal gallbladder ejection fraction. [facility]-[id number] Procedure Note Interface, Radiology Results Incoming - 02/17/2018 10:47 AM CDT Procedure: NM HEPATOBILIARY W PHARM (HIDA SCAN W PHARM) Clinical History: RUQ pain no fever no elev WBC US shows gallstones only Technique: The patient was injected with 4 mCi of [id number] intravenously, followed by dynamic imaging of the [...] duct obstruction. 2. Normal gallbladder ejection fraction. [facility]-[id number] Performing Organization Address City/State/Zipcode Phone Number [facility] [address] [place] [address] * MRI Cholangiogram wo contrast (02/15/2018 9:53 PM CDT) Narrative Performed At [facility] Examination:MRI CHOLANGIOGRAM WO CONTRAST Clinical History: RUQ [...] dilatation nor common bile duct stone identified. [facility]-[id number] Procedure Note Hm Interface, Radiology Results Incoming [...] dilatation nor common bile duct stone identified. [facility]-[id number] Performing Organization Address [facility] Phone Number [facility] [address] [place] [address] * Cv ecg exercise stress (nuclear or echo) (02/15/2018 1:35 PM CDT) Resting HR 80 [facility] MUSE Peak MET Achieved 1.0 [facility] MUSE Protocol Name Regadenoson [facility] MUSE Time in Exercise Phase 00:01:00 H MUSE Max Systolic BP 157 [facility] Max Diastolic BP 64 [facility] M[facility] Max Heart Rate 112 [facility] Max Predicted Heart Rate 164 [facility] MUSE Target HR Formula (220 - Age)*85% [facility] MUSE Test Indication CP [facility] MUSE Stress Test Impression Waveform interpreted in report [facility] MUSE associated with image study. No interpretation is provided as part of this Stress ECG report.--Electronically Signed By Jennifer Knowles MD ([id number]), dictionary editor Sana Zelaya ([id number]) on 02/15/2018 3:03:23 PM Target HR 164.00 bpm [facility] MUSE Performing Organization Address City/[facility]/Zipcode Phone Number [facility] MUSE [address] [place] [address] * Myocardial perfusion (02/15/2018 1:35 PM CDT) [...] ejection fraction of >70%. Performing Organization Address [facility] Center[facility] Phone Number [facility] [address] [place] [address] * US Abdomen Complete (02/15/2018 11:27 AM [...] Ascites: No ascites. 11. Other findings: None [id number] Procedure Note Interface, Radiology Results Incoming - [...] Ascites: No ascites. 11. Other findings: None [id number] Performing Organization Address City/State/Zipcode Phone Number [facility] [address] [place] [address] * Echocardiogram complete w contrast and 3D [...] cm2 [facility] method MV Peak E [place] 0.60 m/s [facility] MV stenosis pressure [...] Organization Address City/State/Zipcode Phone Number [facility] [address] [place] [address] * Troponin (02/15/2018 4:50 AM CDT) Only the most recent of 5 results within the time period is included. Troponin <0.30 0.00 - 0.30 ng/mL [facility] DEPARTMENT OF Comment: PATHOLOGY AND 0.11 - 1.49 GENOMIC MEDICINE ng/mlMay indicate increased risk of acute coronary syndrome. >=1.5 ng/ml Consistent with acute myocardial infarction. The diagnostic value of a single normal or non-diagnostic result is questionable.Serial samples at 2-6 hour intervals are required to rule out acute myocardial injury. Specimen Plasma specimen Performing Organization Address [facility] Phone Number [address] [address] PATHOLOGY AND [employer] MEDICINE * Prothrombin time with INR (02/15/2018 4:50 AM CDT) Prothrombin time 14.3 12.0 - 15.0 sec [facility] DEPARTMENT OF PATHOLOGY AND GENOMIC MEDICINE INR 1.1 [facility] DEPARTMENT OF Comment: PATHOLOGY AND The International Normalized GENOMIC MEDICINE Ratio (INR) is a therapeutic monitoring tool for patients who are stable on oral anticoagulant therapy. An INR of 2.0-3.0 is suggested for deep vein thrombosis/pulmonary embolism. Specimen Blood Performing Organization Address [facility] Centercode Phone Number [facility] [phone] [place] [address] PATHOLOGY AND [employer] MEDICINE * Lactic acid level, SEPSIS - Now and repeat 2x every 3 hours (02/15/2018 12:57 AM CDT) Only the most recent of 4 results within the time period is included. Lactic acid 1.7 0.5 - 2.2 mmol/L [facility] DEPARTMENT OF PATHOLOGY AND GENOMIC MEDICINE Specimen Plasma specimen Performing Organization Address [facility] Centercode Phone Number [address] [address] PATHOLOGY AND GENOMIC MEDICINE * Lipid panel (02/15/2018 12:57 AM CDT) Cholesterol 145 0 - 199 mg/dL [facility] DEPARTMENT OF PATHOLOGY AND GENOMIC MEDICINE Triglycerides 200 (H) 0 - 149 mg/dL [facility] DEPARTMENT OF PATHOLOGY AND GENOMIC MEDICINE HDL cholesterol 41 40 - 99,999 mg/dL [facility] DEPARTMENT OF PATHOLOGY AND GENOMIC MEDICINE LDL cholesterol 79 0 - 99 mg/dL [facility] DEPARTMENT OF PATHOLOGY AND GENOMIC MEDICINE Lipid panel See below [facility] DEPARTMENT OF interpretation Comment: PATHOLOGY [...] specimen Performing Organization Address City/State/Zipcode Phone Number [facility] [id number] [place] [address] PATHOLOGY AND [employer] MEDICINE * Hemoglobin A1c (02/15/2018 12:51 AM CDT) Hemoglobin A1C 8.2 (H) 4.0 - 6.0 % [facility] DEPARTMENT OF Comment: PATHOLOGY AND GENOMIC MEDICINE Less than 6% - Goal of therapy for Type II Diabetes Less than 7%-Goal of therapy for Type I Diabetes Less than 8%-Accepta ble control for Type I or Type II Diabetes Greater than 8%-Unacceptabl e control; action indicated. ([id number]) Specimen Blood Performing Organization Address City/State/Zipcode Phone Number [place] [phone] [place] [address] PATHOLOGY AND GENOMIC MEDICINE * ECG 12 lead (02/15/2018 12:33 AM CDT) Only the most recent of 5 results within the time period is included. Ventricular rate 82 [facility] Atrial rate 82 [facility] [place] interval 178 [facility] QRSD interval 72 [facility] QT interval 380 [facility] QTC interval 443 [facility] P axis 1 59 [facility] QRS axis 1 18 [facility] T wave axis -9 [facility] EKG impression Normal sinus [facility] MUSE rhythm-Nonspecific T wave abnormality-Abnormal ECG-- Performing Organization Address [facility] Center[facility] Phone Number [facility] MUSE [address] [place] [address] * XR Chest 2 Vw (02/14/2018 6:05 [...] is no pleural effusion or pneumothorax. Bones:unremarkable. [id number] Procedure Note Hm Interface, Radiology Results Incoming [...] no pleural effusion or pneumothorax. Bones: unremarkable. [id number] Performing Organization Address [facility] Centercode Phone Number [facility] [address] [place] [address] * Estimated GFR (02/14/2018 5:35 PM CDT) Only the most recent of 2 results within the time period is included. Estimated GFR >=90 mL/min/1.73 m2 [facility] DEPARTMENT OF Comment: PATHOLOGY AND [employer] GENOMIC MEDICINE rpretation G1 >=90 Normal or high G2 60-89Mildly decreased [id number] Mildly to moderately decreased [id number] Moderately to severely decreased G4 15-29Severely decreased G5 <15Kidney failure The eGFR was calculated using the Chronic Kidney Disease Epidemiology Collaboration (CKD-EPI) equation. Interpretation is based on recommendations of the National Kidney Foundation-Kidney Disease Outcomes Quality Initiative (NKF-KDOQI) published in 2014. Specimen Plasma specimen Performing Organization Address [facility] Centercode Phone Number [place] [phone] [place] [address] PATHOLOGY AND [employer] [facility] * D-dimer (02/14/2018 5:35 PM CDT) D-dimer 0.33 0.00 - 0.40 ug/mL [facility] DEPARTMENT OF Comment: PATHOLOGY AND Units are ug/ml Fibrinogen [employer] [facility] Equivalent Unit. When combined with low [...] and malignancies. Specimen Blood Performing Organization Address City/[facility] Centercode Phone Number [facility] [place] [address] [place] [address] PATHOLOGY AND [employer] MEDICINE * CBC with platelet and differential (02/14/2018 5:35 PM CDT) Only the most recent of 2 results within the time period is included. WBC 5.4 4.5 - 11.0 k/uL [facility] DEPARTMENT OF PATHOLOGY AND GENOMIC MEDICINE RBC 4.28 4.20 - 5.50 m/uL [facility] DEPARTMENT OF PATHOLOGY AND GENOMIC MEDICINE HGB 11.9 (L) 12.0 - 16.0 g/dL [facility] DEPARTMENT OF PATHOLOGY AND GENOMIC MEDICINE HCT 36.9 (L) 37.0 - 47.0 % [facility] DEPARTMENT OF PATHOLOGY AND GENOMIC MEDICINE MCV 86.2 82.0 - 100.0 fL [facility] DEPARTMENT OF PATHOLOGY AND GENOMIC MEDICINE MCH 27.8 27.0 - 34.0 pg [facility] DEPARTMENT OF PATHOLOGY AND GENOMIC MEDICINE MCHC 32.2 31.0 - 37.0 g/dL [facility] DEPARTMENT OF PATHOLOGY AND GENOMIC MEDICINE RDW - SD 43.5 37.0 - 55.0 fL [facility] DEPARTMENT OF PATHOLOGY AND GENOMIC MEDICINE MPV 10.7 6.9 - 11.0 fL [facility] DEPARTMENT OF PATHOLOGY AND GENOMIC MEDICINE Platelet count 243 150 - 400 K/uL [facility] DEPARTMENT OF PATHOLOGY AND GENOMIC MEDICINE Nucleated RBC 0.00 /100 WBC [facility] DEPARTMENT OF PATHOLOGY AND GENOMIC MEDICINE Neutrophils 42.4 39.0 - 69.0 % [facility] DEPARTMENT OF PATHOLOGY AND GENOMIC MEDICINE Lymphocytes 43.4 25.0 - 45.0 % [facility] DEPARTMENT OF PATHOLOGY AND GENOMIC MEDICINE Monocytes 10.7 (H) 0.0 - 10.0 % [facility] DEPARTMENT OF PATHOLOGY AND GENOMIC MEDICINE Eosinophils 2.6 0.0 - 5.0 % [facility] DEPARTMENT OF PATHOLOGY AND GENOMIC MEDICINE Basophils 0.7 0.0 - 1.0 % [facility] DEPARTMENT OF PATHOLOGY AND GENOMIC MEDICINE Immature granulocytes 0.2 0.0 - 1.0 % [facility] DEPARTMENT OF PATHOLOGY AND GENOMIC MEDICINE Specimen Blood Performing Organization Address City/[facility] [place] [address] PATHOLOGY [facility] * B natriuretic peptide (02/14/2018 5:35 PM CDT) BNP 8 0 - 100 pg/mL [facility] DEPARTMENT OF PATHOLOGY AND GENOMIC MEDICINE Specimen Blood Performing Organization Address City/[facility] Centercode Phone Number [address] * Lipase level (02/14/2018 5:35 PM CDT) Only the most recent of 2 results within the time period is included. Lipase 26 13 - 60 U/L [facility] DEPARTMENT OF PATHOLOGY AND GENOMIC MEDICINE Specimen Plasma specimen Performing Organization Address City/[facility] Centercode Phone Number [address] [address] PATHOLOGY AND GENOMIC MEDICINE * Creatine kinase, total (CPK) (02/14/2018 5:35 PM CDT) Only the most recent of 2 results within the time period is included. Creatine kinase 226 (H) 26 - 192 U/L [facility] DEPARTMENT OF PATHOLOGY AND GENOMIC MEDICINE Specimen Plasma specimen Performing Organization Address City/[facility] [place] [address] PATHOLOGY AND GENOMIC MEDICINE * Comprehensive metabolic panel (02/14/2018 5:35 PM CDT) Only the most recent of 2 results within the time period is included. Sodium 138 135 - 148 mEq/L [facility] DEPARTMENT OF PATHOLOGY AND GENOMIC MEDICINE Potassium 5.2 (H) 3.5 - 5.0 mEq/L [facility] DEPARTMENT OF PATHOLOGY AND GENOMIC MEDICINE Chloride 104 98 - 112 mEq/L [facility] DEPARTMENT OF PATHOLOGY AND GENOMIC MEDICINE CO2 23 (L) 24 - 31 mEq/L [facility] DEPARTMENT OF PATHOLOGY AND GENOMIC MEDICINE Anion gap 11@ANIO 7 - 15 mEq/L [facility] DEPARTMENT OF PATHOLOGY AND GENOMIC MEDICINE BUN 11 6 - 20 mg/dL [facility] DEPARTMENT OF PATHOLOGY AND GENOMIC MEDICINE Creatinine 0.54 0.50 - 0.90 mg/dL [facility] DEPARTMENT OF PATHOLOGY AND GENOMIC MEDICINE Glucose 117 (H) 65 - 99 mg/dL [facility] DEPARTMENT OF PATHOLOGY AND GENOMIC MEDICINE Calcium 9.1 8.3 - 10.2 mg/dL [facility] DEPARTMENT OF PATHOLOGY AND GENOMIC MEDICINE Protein 7.5 6.3 - 8.3 g/dL [facility] DEPARTMENT OF PATHOLOGY AND GENOMIC MEDICINE Albumin 4.1 3.5 - 5.0 g/dL [facility] DEPARTMENT OF PATHOLOGY AND GENOMIC MEDICINE A/G ratio 1.2 0.7 - 3.8 [facility] DEPARTMENT OF PATHOLOGY AND GENOMIC MEDICINE Alkaline phosphatase 58 35 - 104 U/L [facility] DEPARTMENT OF PATHOLOGY AND GENOMIC MEDICINE AST 70 (H) 10 - 35 U/L [facility] DEPARTMENT OF PATHOLOGY AND GENOMIC MEDICINE ALT 33 5 - 50 U/L [facility] DEPARTMENT OF PATHOLOGY AND GENOMIC MEDICINE Total bilirubin 0.7 0.2 - 1.2 mg/dL [facility] DEPARTMENT OF PATHOLOGY AND GENOMIC MEDICINE Specimen Plasma specimen Performing Organization Address [facility] [place] [address] PATHOLOGY AND GENOMIC MEDICINE * ECG ED [...] ED Physician in the absence of a credit rating inspector: yes Interpretation: Interpretation: normal Rate: ECG rate:80 [...] period is included. Specimen site Clean catch [facility] DEPARTMENT OF PATHOLOGY AND GENOMIC MEDICINE Color, UA Yellow [facility] DEPARTMENT OF PATHOLOGY AND GENOMIC MEDICINE Appearance, UA Clear [facility] DEPARTMENT OF PATHOLOGY AND GENOMIC MEDICINE Specific gravity, UA 1.028 1.001 - 1.030 [facility] DEPARTMENT OF PATHOLOGY AND GENOMIC MEDICINE pH, UA 5.0 5.0 - 9.0 [facility] DEPARTMENT OF PATHOLOGY AND GENOMIC MEDICINE Protein, UA 1+ (A) Negative [facility] DEPARTMENT OF PATHOLOGY AND GENOMIC MEDICINE Glucose, UA Negative Negative [facility] DEPARTMENT OF PATHOLOGY AND GENOMIC MEDICINE Ketones, UA Negative Negative [facility] DEPARTMENT OF PATHOLOGY AND GENOMIC MEDICINE Bilirubin, UA Negative Negative [facility] DEPARTMENT OF PATHOLOGY AND GENOMIC MEDICINE Blood, UA Negative Negative [facility] DEPARTMENT OF PATHOLOGY AND GENOMIC MEDICINE Nitrite, UA Negative Negative [facility] DEPARTMENT OF PATHOLOGY AND GENOMIC MEDICINE Urobilinogen, UA <2.0 <2.0 E.U./dL [facility] DEPARTMENT OF PATHOLOGY AND GENOMIC MEDICINE Leukocyte esterase, UA Negative Negative [facility] DEPARTMENT OF PATHOLOGY AND GENOMIC MEDICINE Epithelial cells, UA 3 /HPF [facility] DEPARTMENT OF PATHOLOGY AND GENOMIC MEDICINE Round epithelial cells, <1 0 - 5 /HPF [facility] DEPARTMENT OF UA PATHOLOGY AND GENOMIC MEDICINE WBC, UA 1 0 - 4 /HPF [facility] DEPARTMENT OF PATHOLOGY AND GENOMIC MEDICINE RBC, UA 1 0 - 5 /HPF [facility] DEPARTMENT OF PATHOLOGY AND GENOMIC MEDICINE Bacteria, UA Few None seen [facility] DEPARTMENT OF PATHOLOGY AND GENOMIC MEDICINE Yeast, UA None seen [facility] DEPARTMENT OF PATHOLOGY AND GENOMIC MEDICINE Yeast with pseudohyphae, None seen [facility] DEPARTMENT OF UA PATHOLOGY AND GENOMIC MEDICINE Specimen Urine Performing Organization Address City/[facility] Centercode Phone Number [facility] [place] [address] PATHOLOGY AND GENOMIC MEDICINE * Urine culture (02/14/2018 5:00 PM CDT) Only the most recent of 2 results within the time period is included. Urine culture SEE COMMENTComment: [facility] DEPARTMENT OF Bacteriuria screen negative. PATHOLOGY AND GENOMIC MEDICINE Performing Organization Address City/[facility] Centercode Phone Number [facility] [place] [address] PATHOLOGY AND GENOMIC MEDICINE * XR Chest 1 Vw Portable (02/12/2018 7:39 PM CDT) Narrative Performed At Study:XR CHEST 1 VW PORTABLE [facility] History: chest paincough past few daysno hypoxia COMPARISON: September 21, 2016 IMPRESSION: A single view of the chest.There is no focal consolidation, pleural effusion or pneumothorax.Cardiac silhouette is normal.Visualized osseous structures arewithout acute abnormality. [facility]-[id number] Procedure Note Hm Interface, Radiology Results Incoming - 02/12/2018 7:49 PM CDT Study:XR CHEST 1 VW PORTABLE History: chest pain cough past few days no hypoxia COMPARISON: September 21, 2016 IMPRESSION: A single view of the chest. There is no focal consolidation, pleural effusion or pneumothorax. Cardiac silhouette is normal. Visualized osseous structures are without acute abnormality. [facility]-[id number] Performing Organization Address [facility] Centercode Phone Number [facility] [address] [place] [address] * Beta hydroxybutyrate (02/12/2018 6:45 PM CDT) Beta hydroxybutyrate 0.32 (H) 0.02 - 0.27 mmol/L [facility] DEPARTMENT OF PATHOLOGY AND GENOMIC MEDICINE Specimen Blood Performing Organization Address City/[facility]/Zipcode Phone Number [facility] DEPARTMENT [address] [place] [address] PATHOLOGY AND GENOMIC MEDICINE * Phosphorus level (02/12/2018 6:45 PM CDT) Phosphorus 4.5 2.4 - 4.5 mg/dL [facility] DEPARTMENT OF PATHOLOGY AND GENOMIC MEDICINE Specimen Plasma specimen Performing Organization Address City/[facility] Centercode Phone Number [facility] [place] [address] [place] [address] PATHOLOGY AND GENOMIC MEDICINE * Magnesium level (02/12/2018 6:45 PM CDT) Magnesium 2.0 1.6 - 2.6 mg/dL [facility] DEPARTMENT OF PATHOLOGY AND GENOMIC MEDICINE Specimen Plasma specimen Performing Organization Address City/State/Zipcode Phone Number [facility] [address] [place] [address] PATHOLOGY AND GENOMIC MEDICINE after 05/04/2017 Insurance Payer Benefit Subscriber ID Type Phone Address Plan / Group xxxxxxxxx [facility] Advance Directives Patient has advance care planning documents, and code status on file. For more i nformation, please contact: Andrade Valdivia [address] [place] [address] Date Inactivated Comments Code Status Date Activated 02/17/2018 6:18 PM Full Code 02/15/2018 2:18 AM Code Status decision reached by: Patient
[2018-05-05] MEDS ORDERED: HYDROCODONE/APAP 7.5MG-325MG 1 EA TAB PO PRN (12:15)
[2018-05-05] MEDS ORDERED: MORPHINE SULFATE 2 MG/ML SYR IV PRN (12:15)
--- NOTE | 2018-05-05 12:39 | NUR ---
Received patient on the floor and alert and responsive, VSS, no resp distress, c/o pains and paper orders entered in the system for verification. Oriented to room and call light within reach, IV line in place and line not running as waiting or orders to be verified. Patient is diabetic, NPO but ice chips, SCDs in place, will monitor
[2018-05-05] MEDS: MORPHINE SULFATE INJ 4 MG/ML INJ IV PRN ×2 (12:53→21:00)
[2018-05-05 12:54] VITALS: BP 153/77
[2018-05-05] MEDS: LACTATED RINGER'S 1,000 ML IV SCH ×2 (12:54→21:05)
[2018-05-05 12:55] VITALS: BP 153/77
[2018-05-05] MEDS ORDERED: ONDANSETRON HCL INJ 2 MG/ML VIAL IV PRN (13:00)
[2018-05-05] MEDS ORDERED: ARTIFICIAL TEARS (OPTH) 15 ML BTL OP PRN (14:00)
[2018-05-05] MEDS ORDERED: NEOSTIGMINE 5 MG/5ML SYR ONE (14:06)
[2018-05-05] MEDS ORDERED: LIDOCAINE HCL 2% LOCAL INJ 5 ML SDV VIAL INJ ONE (14:06)
[2018-05-05] MEDS ORDERED: ROCURONIUM BROMIDE 10 MG/ML 5ML VIAL ONE (14:06)
[2018-05-05] MEDS ORDERED: ACETAMINOPHEN 1000 MG/100 ML IV ONE (14:06)
[2018-05-05] MEDS ORDERED: EPHEDRINE SULFATE INJ 50 MG/10 ML SYR ONE (14:06)
[2018-05-05] MEDS ORDERED: DEXAMETHASONE SOD PHOS INJ 4 MG/ML VIAL ONE (14:06)
[2018-05-05] MEDS ORDERED: GLYCOPYRROLATE INJ 1MG/ 5 ML SYR ONE (14:06)
[2018-05-05] MEDS ORDERED: SEVOFLURANE INHAL SOLN 250 ML PEN BTL ONE (14:06)
[2018-05-05] MEDS ORDERED: PROPOFOL IV EMULSION 10 MG/ML 20 ML VIAL ONE (14:06)
--- NOTE | 2018-05-05 14:08 | NUR ---
Patient alert and responsive, SCDs in place encouraged patient to get OOB for ambulation but stated should come back later, IS by bedside, IV fluids running as ordered, trochar sites intact and will monitor
[2018-05-05] MEDS ORDERED: FENTANYL CITRATE/PF 100MCG/2 ML INJ ONE (14:22)
[2018-05-05] MEDS ORDERED: MIDAZOLAM HCL 2 MG/2 ML VIAL ONE (14:22)
[2018-05-05] MEDS ORDERED: DIPHENHYDRAMINE HCL INJ 50 MG/ML VIAL IV PRN (14:30)
[2018-05-05] MEDS: VENLAFAXINE HCL 75 MG TAB PO SCH ×2 (15:00→21:00)
--- NOTE | 2018-05-05 15:30 | Consultation ---
DATE OF CONSULTATION: May 05, 2018 INTERNAL MEDICINE CONSULTATION CHIEF COMPLAINT: "I just had weight loss surgery." HISTORY OF PRESENT ILLNESS: This is a 58-year-old woman who today underwent successful laparoscopic Balwinder-en-Y gastric bypass. She has history of obesity that complicates her underlying sleep apnea, type 2 diabetes mellitus and hypertension. Patient states at this time she has mild pain in her right lower abdominal quadrant area. Patient denies any nausea or vomiting. REVIEW OF SYSTEMS GENERAL: Weight has been stable. She did lose 10 pounds just prior to surgery. No fever or chills. HEENT: No headaches. No visual changes. CARDIOVASCULAR/RESPIRATORY: No chest pain, no shortness of breath, no cough. GI: Slight right lower quadrant abdominal pain. No nausea, vomiting. : Flores catheter has been removed. Denies any GI symptoms. NEUROMUSCULAR: Denies any limb weakness or numbness. SURGICAL HISTORY 1. Laparoscopic Balwinder-en-Y gastric bypass today. 2. section. 3. Liposuction in 1994. ALLERGIES: NO KNOWN DRUG ALLERGIES. FAMILY HISTORY: Multiple family members with heart disease and type 2 diabetes mellitus. PAST MEDICAL HISTORY 1. Hypertensive heart disease. 2. Type 2 diabetes mellitus. 3. Obstructive sleep apnea. 4. Obesity with BMI of 36. 5. Sarcoidosis with pulmonary involvement. 6. Breast cancer in 2016. 7. Hyperlipidemia. SOCIAL HISTORY: This woman is single. She lives alone. No history of tobacco or alcohol use. 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 MEDICATIONS 1. Atorvastatin 40 mg nightly. 2. Symbicort 80/4.5 one puff daily. 3. Ergocalciferol 35347 units once a week. 4. Hydroxyzine 25 mg once every night as needed for insomnia. 5. NovoLog 70/30 insulin 30 units in the morning and 36 units at night. 6. Lisinopril 2.5 mg nightly. 7. Multivitamin once daily. 8. Tamoxifen 20 mg nightly. 9. Venlafaxine 75 mg t.i.d. 10. Ferrous gluconate once daily. 11. Trulicity 1.5 mg subcutaneous weekly. PHYSICAL EXAMINATION GENERAL: She is awake, alert and fully oriented. She has a flat affect, but she is very pleasant and cooperative with exam. She does not appear to be in any distress. VITAL SIGNS: Height 5 feet 2 inches. Weight is 202 pounds. BMI is 37. Blood pressure 153/77, pulse 92, respiratory rate is 18, oxygen saturation is 96% on room air, temperature is 96.9. INTEGUMENT: Skin is warm and dry. No pallor, jaundice, diaphoresis. HEENT: Anicteric sclerae with moist mucous membranes. NECK: Supple. CARDIOVASCULAR: Distant heart sounds. Regular rate and rhythm. LUNGS: No rales, no rhonchi, no wheezes. ABDOMEN: Obese. The laparoscopic incisions are currently dressed. EXTREMITIES: No edema or deformity. She has sequential compression devices on her bilateral lower legs. NEUROLOGICALLY: Intact. DIAGNOSES 1. Status post laparoscopic Balwinder-en-Y gastric bypass. 2. Obstructive sleep apnea. 3. Obesity, body mass index 37, complicating underlying sleep apnea, type 2 diabetes mellitus and hypertension. PLAN 1. Use CPAP at night. 2. Resume home medications with sips of water. 3. Encourage incentive spirometry use every hour, 10 inspirations, from 7a to 7p. 4. Will start enoxaparin for deep venous thrombosis prophylaxis and mobilize with physical therapy. I spent 45 minutes in the care of the patient. I would like to thank Dr. Martin for this generous consult. Job#: [id number] ALFREDA BHAGAT
--- NOTE | 2018-05-05 15:53 | NUR ---
Patient alert and responsive, OOB and ambulated about 400 feet, appears comfortable and pains well managed, will monitor
[2018-05-05 16:50] VITALS: BP 152/69
[2018-05-05] MEDS: ENOXAPARIN SOD INJ 40 MG/0.4 ML SYR SC SCH (17:00)
--- NOTE | 2018-05-05 19:50 | NUR ---
ASSISTED PT TO AMBULATE THE HALLWAY AND BACK TO BED. PT TOLERATED WELL.
[2018-05-05 20:00] VITALS: BP 163/72
[2018-05-05] MEDS: BUDESONIDE/FORMOTEROL FUMARATE 80/4.5MCG 6.9 GM INH AEROSOL IH SCH (20:02)
[2018-05-05] MEDS ORDERED: TAMOXIFEN CITRATE 10 MG TAB PO SCH (21:00)
[2018-05-05] MEDS ORDERED: LISINOPRIL 2.5 MG TAB PO SCH (21:00)
[2018-05-05] MEDS ORDERED: INSULIN ASPART 70/30 100 UNITS/ML VIAL SC SCH (21:00)
[2018-05-05] MEDS ORDERED: HYDROXYZINE HCL 25 MG TAB PO SCH (21:00)
[2018-05-05] MEDS ORDERED: ATORVASTATIN 40 MG TAB PO SCH (21:00)
--- NOTE | 2018-05-05 22:10 | NUR ---
ASSISTED PT TO AMBULATE THE HALLWAY AND BACK TO BED AT THIS TIME.
[2018-05-06] VITALS: BP 169/77
[2018-05-06 04:00] VITALS: BP 165/77
[2018-05-06 05:54] LABS: BASOPHILS % 0.2 % (0.0-1.0); EOSINOPHILS % 0.2 % (0.0-6.0); HEMATOCRIT 32.5 % (34.2-44.1); HEMOGLOBIN 10.6 g/dL (12.0-16.0); LYMPHOCYTES # (AUTO) 1.8 (1.0-3.2); LYMPHOCYTES % 20.8 % (18.0-39.1); MEAN CORPUSCULAR HEMOGLOBIN 27.3 pg (28-32); MEAN CORPUSCULAR HGB CONC 32.6 g/dL (31-35); MEAN CORPUSCULAR VOLUME 83.8 fL (81-99); MONOCYTES # (AUTO) 0.7 (0.2-0.8); MONOCYTES % 7.8 % (4.4-11.3); NEUTROPHILS % 70.6 % (38.7-80.0); PLATELET COUNT 250 x10e3/uL (140-360); RED BLOOD COUNT 3.88 x10e6/uL (3.6-5.1)
[2018-05-06 06:15] LABS: ALANINE AMINOTRANSFERASE 24 IU/L (0-55); ALBUMIN 3.4 g/dL (3.5-5.0); ALBUMIN/GLOBULIN RATIO 0.9 (0.8-2.0); ALKALINE PHOSPHATASE 51 IU/L (40-150); ANION GAP 13.8 mmol/L (8-16); BLOOD UREA NITROGEN 6 mg/dL (7-26); BUN/CREATININE RATIO 9 (6-25); CALCIUM 8.7 mg/dL (8.4-10.2); CARBON DIOXIDE 24 mmol/L (22-29); CHLORIDE 100 mmol/L (98-107); CREATININE, SERUM 0.65 mg/dL (0.57-1.11); EST GLOMERULAR FILTRATION RATE > 60 ML/MIN (60-); GLUCOSE 154 mg/dL (74-118); POTASSIUM 3.8 mmol/L (3.5-5.1); SODIUM 134 mmol/L (136-145)
--- NOTE | 2018-05-06 07:05 | NUR ---
Received patient mid fowlers position, side rails upx2, call light within reach. AAOX4 to time, person, place, situation. Respirations even and unlabored. Instructed patient to use call light for assistance. Voiced understanding. Will continue to monitor.
[2018-05-06] MEDS ORDERED: INSULIN ASPART 70/30 100 UNITS/ML VIAL SC SCH (07:30)
[2018-05-06 07:57] VITALS: BP 177/77
[2018-05-06 08:05] VITALS: BP 177/77
[2018-05-06] MEDS: ENOXAPARIN SOD INJ 40 MG/0.4 ML SYR SC SCH ×2 (08:21→17:45)
[2018-05-06] MEDS: VENLAFAXINE HCL 75 MG TAB PO SCH ×2 (08:21→15:40)
[2018-05-06] MEDS: LACTATED RINGER'S 1,000 ML IV SCH ×2 (08:21→12:15)
[2018-05-06] MEDS ORDERED: MULTIVITAMINS/MINERALS TAB PO SCH (09:00)
[2018-05-06] MEDS ORDERED: SIMETHICONE 80 MG CHEW PO PRN (09:15)
[2018-05-06] MEDS: BUDESONIDE/FORMOTEROL FUMARATE 80/4.5MCG 6.9 GM INH AEROSOL IH SCH (09:42)
[2018-05-06] MEDS: MORPHINE SULFATE INJ 4 MG/ML INJ IV PRN (10:13)
[2018-05-06] MEDS ORDERED: LISINOPRIL 2.5 MG TAB PO ONE (10:30)
--- NOTE | 2018-05-06 10:46 | NUR ---
PROGRESS NOTE S: Complains of gas pain, otherwise doing well, tolerating liquid diet O: AF, VSS, labs ok Gen- no distress Abd- soft, incisions c/d/i A/P: POD 1, s/p LRYGB -Ambulate, Gas x, clears, dc home -f/u in 1 week
[2018-05-06] MEDS ORDERED: ULTRAM50 MG PO (11:17)
[2018-05-06] MEDS ORDERED: TYLENOL WITH C1 EACH PO (11:18)
[2018-05-06] MEDS ORDERED: SIMETHICONE 40 MG/0.6 ML BTL PO ONE (11:30)
[2018-05-06 12:00] VITALS: BP 165/77
--- NOTE | 2018-05-06 13:00 | NUR ---
aware of BP 165/77. NO new orders
[2018-05-06 15:58] VITALS: BP 156/74
--- NOTE | 2018-05-06 18:14 | NUR ---
Left forearm IV discontinued. No signs of infiltration noted. 2x2 gauze and tape placed. Taken via wheelchair to personal car. AAOX4 to time, person, place, situation. Respirations even and unlabored. Discharge instructions, rx, and all personal belongings taken with patient.
== END 2018-05-06 18:14 | disposition home or self-care (01) | DRG 621 ==
LOC: OR 05:47 → PACU V 11:38 → MED/SURG 11:48
PROVIDERS: ADMIT Surgery; ATTEND Surgery
PROC: 0D164ZB Bypass Stomach to Ileum, Percutaneous Endoscopic Approach (ICD-10-PCS; principal; 2018-05-05 07:30)
DX: E66.01 Morbid (severe) obesity due to excess calories (principal); Z68.37 Body mass index [BMI] 37.0-37.9, adult; E11.9 Type 2 diabetes mellitus without complications; Z79.4 Long term (current) use of insulin; G47.33 Obstructive sleep apnea (adult) (pediatric); D86.0 Sarcoidosis of lung; E78.5 Hyperlipidemia, unspecified; Z85.3 Personal history of malignant neoplasm of breast; I10 Essential (primary) hypertension
CPT/HCPCS: 36415; 80048; 80053; 81025; 82948; 84100; 85025; 86850; 86900; 93005; 94640; J0690; J1100; J1650; J1815; J2001; J2250; J2270; J2405; J7120